=== PATIENT | female | born 2005 | race Hispanic/Latino ===

== ENCOUNTER 2024-09-22 16:16 | Emergency (ER) | payer SELFPAY ==
[2024-09-22] MEDS ORDERED: NA CHLORIDE 0.9% 1,000 ML ONE (16:56)
[2024-09-22] MEDS ORDERED: ONDANSETRON 4 MG/2 ML VIAL ONE (16:56)
[2024-09-22 17:02] LABS: Specific Gravity > 1.030 (1.005-1.030); Urine Bilirubin NEGATIVE (Negative); Urine Blood Negative (Negative); Urine Clarity Clear (Clear); Urine Color Light-Yellow (Yellow); Urine Glucose 4+ (Over) (Negative); Urine Ketones NEGATIVE (Negative); Urine Microscopic Reflex YN NO UMIC; Urine Nitrite NEGATIVE (Negative); Urine Protein NEGATIVE (Negative); Urine Urobilinogen 1+ (Normal); Urine pH 6.5 (5.0-7.0)
[2024-09-22 17:12] LABS: Absolute Lymphocytes (CBC) 2.7 K/uL (0.7-4.9); Absolute Monocytes 0.7 K/uL (0.1-1.3); Absolute Neutrophil 2.2 K/uL (1.8-8.0); Basophils % 0.3 % (0-1.3); Eosinophils % 0.6 % (0-4.4); Hematocrit 41.9 % (36.0-45.0); Hemoglobin 14.7 g/dL (12.0-15.0); Lymphocytes % 48.1 % (15.3-44.8); MCH 31.5 pg (27.0-35.0); MCHC 35.1 g/dL (32.0-36.0); MCV 89.9 fL (80-100); MPV 9.2 fL (7.6-11.3); Monocytes % 12.4 % (3.3-12.3); Neutrophils % 38.6 % (41.7-73.7); Nucleated Red Blood Cells % 0.1 % (0-0); Platelets 290 thou/uL (152-406); RBC Red Blood Cell Count 4.67 M/uL (3.86-4.86); Red Cell Distribution Width 13.1 % (12.1-15.2)
[2024-09-22 17:28] LABS: Albumin 3.5 g/dL (3.4-5.0); Albumin/Globulin Ratio 0.8 (1.1-1.8); Bilirubin Total 0.4 mg/dL (0.2-1.0); Globulin 4.2 g/dL (2.3-3.5); Protein, Total 7.7 g/dL (6.4-8.2)
--- NOTE | 2024-09-22 17:36 | EDPHYS ---
Physician Documentation [facility] Name: Mary Carrera Age: 18 yrs Sex: Female : 2005 Arrival Date: 09/22/2024 Time: 16:16 Bed 12 Private MD: ED Physician Robin Arshad HPI: 09/22 16:37 This 18 yrs old Female presents to ER via Unassigned with complaints of Nausea/Vomiting.kb 16:37 Pt is a 18 year old female who presents for vomiting and diarrhea that started on kb Friday. States she started feeling lightheaded later in the day. States the nausea and vomiting has continued, but she hasn't had a BM since yesterday morning. Denies fever. States she has been able to keep fluids down, but hasn't had an appetite to eat. . 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 - Infectious Disease History:: Denies. - Social history:: Smoking status: . ROS: 16:36 Constitutional: As per HPI kb Exam: 16:37 Constitutional: This is a well developed, well nourished patient who is awake, alert, kb and in no acute distress. Head/Face: Normocephalic, atraumatic. ENT: Moist Mucous membranes Cardiovascular: Regular rate Respiratory: Respirations even and unlabored. No increased work of breathing. Talking in full sentences Abdomen/GI: Soft, non-tender. No distention Skin: Warm, dry with normal turgor. Normal color. MS/ Extremity: Pulses equal, no cyanosis. Neurovascular intact. Full, normal range of motion. Neuro: Awake and alert, GCS 15, oriented to person, place, time, and situation. Vital Signs: 16:39 BP 138 / 90; Pulse 84; Resp 16; Temp 98.4; Pulse Ox 100% on R/A; iw 17:45 BP 135 / 78; Pulse 85; Resp 20; Temp 97.9; Pulse Ox 100% ; kj2 MDM: 16:21 Medical Screening Exam initiated kb 17:34 Differential diagnosis: viral gastroenteritis, Abnormal electrolytes, dehydration. Data kb reviewed: vital signs, nurses notes. Historians other than the Patient: Parent: mother. Counseling: I had a detailed discussion with the patient and/or guardian regarding the historical points, exam findings, and any diagnostic results supporting the discharge/admit diagnosis, lab results, the need for outpatient follow up, a family practitioner, to return to the emergency department if symptoms worsen or persist or if there are any questions or concerns that arise at home. ED course: Discussed all lab results including did glucose and follow-up with PCP. 17:36 Test considered but Not performed: CT: CT scan considered but patient has no abdominal kb pain or tenderness, afebrile normal white blood cell count. 09/22 16:39 Order name: CBC with Diff; Complete Time: 17:18 kb 09/22 16:39 Order name: CMP; Complete Time: 17:29 kb 09/22 16:39 Order name: Lipase; Complete Time: 17:29 kb 09/22 16:39 Order name: Test, Urine; Complete Time: 17:02 kb 09/22 16:39 Order name: Urinalysis w/ reflexes; Complete Time: 17:02 kb 09/22 16:39 Order name: IV Saline Lock; Complete Time: 17:13 kb 09/22 16:39 Order name: Labs collected and sent; Complete Time: 17:13 kb Administered Medications: 17:14 Drug: Ondansetron IVP 4 mg IVP once; over 2 minutes Route: IVP; Site: right antecubital;kj2 17:48 Follow up: Response: No adverse reaction kj2 17:14 Drug: NS 0.9% IV 1000 ml IV at 1 bolus Per protocol; to be given as a bolus over 60 kj2 minutes Route: IV; Rate: 1 bolus; Site: right antecubital; 17:48 Follow up: IV Status: Completed infusion; IV Intake: 1000ml kj2 17:59 Follow up: IV Status: Completed infusion; IV Intake: 1000ml kj2 17:59 Drug: Potassium Chloride PO 40 mEq PO once Route: PO; kj2 17:59 Follow up: Response: Medication administered at discharge. kj2 Disposition Summary: 09/22/24 17:35 Discharge Ordered Notes: Location: Home kb Condition: Stable kb Diagnosis - Nausea with vomiting, unspecified kb Followup: kb - With: Emergency Department - When: As needed - Reason: Worsening of condition Followup: kb - With: Private Physician - When: 2 - 3 days - Reason: Recheck today's complaints, Continuance of care, Re-evaluation by your physician Discharge Instructions: - Discharge Summary Sheet kb - Viral Gastroenteritis, Adult, [id number] kb - Nausea and Vomiting, Adult, [id number] kb Forms: - Work release form kb - Medication Reconciliation Form kb - Antibiotic Education kb - Prescription Opioid Use kb - Patient Portal Instructions kb - Leadership Thank You Letter kb Prescriptions: - ondansetron 4 mg Oral Tablet,disintegrating - take 1 tablet ORAL route every 6 hours As needed as needed for nausea and kb vomiting; 12 tablet; Refills: 0, Product Selection Permitted Signatures: Dispatcher [employer] EDMS Krystina Villagomez, PRASHANTH-C PRASHANTH-Lisa Burns, RN RN iw Ana Biggs RN RN kj2
--- NOTE | 2024-09-22 17:36 | ER ---
Nurse's Notes [facility] Name: Mary Carrera Age: 18 yrs Sex: Female : 2005 Arrival Date: 09/22/2024 Time: 16:16 Bed 12 Private MD: Diagnosis: Nausea with vomiting, unspecified Presentation: 09/22 16:38 Chief complaint: Patient states: vomiting, diarrhea , nausea, light headed since iw Friday. Coronavirus screen: At this time, the client does not indicate any symptoms associated with coronavirus-19. Ebola Screen: No symptoms or risks identified at this time. Initial Sepsis Screen: Does the patient meet any 2 criteria? No. Patient's initial sepsis screen is negative. Does the patient have a suspected source of infection? No. Patient's initial sepsis screen is negative. Risk Assessment: Do you want to hurt yourself or someone else? Patient reports no desire to harm self or others. 16:38 Method Of Arrival: Ambulatory iw 16:38 Acuity: JESSICA 3 iw 16:39 Onset of symptoms was September 19, 2024. iw Triage Assessment: 16:50 GI: Reports nausea. kj2 17:46 General: Behavior is calm, cooperative. 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 - Infectious Disease History:: Denies. - Social history:: Smoking status: . Screenin:50 [facility] ED Fall Risk Assessment (Adult) History of falling in the last 3 months, kj2 including since admission No falls in past 3 months (0 pts) Confusion or Disorientation No (0 pts) Intoxicated or Sedated No (0 pts) Impaired Gait No (0 pts) Mobility Assist Device Used No (0 pt) Altered Elimination No (0 pt) Score/Fall Risk Level 0 - 2 = Low Risk Maintained a safe environment, Hourly rounding (assess needs \T\ fall precautionary measures) done. Abuse screen: Denies threats or abuse. Denies injuries from another. Nutritional screening: No deficits noted. Tuberculosis screening: No symptoms or risk factors identified. Assessment: 16:50 General: Appears in no apparent distress. Pain: Complains of pain in abdomen Pain kj2 currently is 3 out of 10 on a pain scale. Neuro: Level of Consciousness is awake, alert, obeys commands, Oriented to person, place, time, situation. Cardiovascular: Patient's skin is warm and dry. Respiratory: Airway is patent Respiratory effort is even, unlabored. GI: Abdomen is non-distended. : No signs and/or symptoms were reported regarding the genitourinary system. 17:45 Reassessment: Patient appears in no apparent distress at this time. Patient and/or kj2 family updated on plan of care and expected duration. Pain level reassessed. Patient is alert, oriented x 3, equal unlabored respirations, skin warm/dry/pink. Vital Signs: 16:39 BP 138 / 90; Pulse 84; Resp 16; Temp 98.4; Pulse Ox 100% on R/A; iw 17:45 BP 135 / 78; Pulse 85; Resp 20; Temp 97.9; Pulse Ox 100% ; kj2 ED Course: 16:21 Patient arrived in ED. gl 16:21 Krystina Villagomez [facility]C [facility] kb 16:21 Robin Arshad MD is Attending Physician. kb 16:38 Triage completed. iw 16:38 Arm band placed on. iw 16:50 Patient has correct armband on for positive identification. Bed in low position. Call kj2 light in reach. Adult w/ patient. Provided Education on: call light. 16:53 Ana Biggs, RN is Primary Nurse. kj2 16:56 Test, Urine Sent. iw 16:56 Urinalysis w/ reflexes Sent. iw 17:46 No provider procedures requiring assistance completed. kj2 17:47 IV discontinued, intact, bleeding controlled, No redness/swelling at site. Pressure kj2 dressing applied. Administered Medications: 17:14 Drug: Ondansetron IVP 4 mg IVP once; over 2 minutes Route: IVP; Site: right antecubital;kj2 17:48 Follow up: Response: No adverse reaction kj2 17:14 Drug: NS 0.9% IV 1000 ml IV at 1 bolus Per protocol; to be given as a bolus over 60 kj2 minutes Route: IV; Rate: 1 bolus; Site: right antecubital; 17:48 Follow up: IV Status: Completed infusion; IV Intake: 1000ml kj2 17:59 Follow up: IV Status: Completed infusion; IV Intake: 1000ml kj2 17:59 Drug: Potassium Chloride PO 40 mEq PO once Route: PO; kj2 17:59 Follow up: Response: Medication administered at discharge. kj2 Medication: 17:18 VIS not applicable for this client. kj2 Intake: 17:48 IV: 1000ml; Total: 1000ml. kj2 17:59 IV: 1000ml; Total: 2000ml. kj2 Outcome: 17:35 Discharge ordered by . ang 17:47 Discharged to home ambulatory, kj2 17:47 Condition: stable 17:47 Discharge instructions given to patient, Instructed on discharge instructions, follow up and referral plans. Demonstrated understanding of instructions, follow-up care, 18:00 Patient left the ED. kj2 Signatures: Krystina Villagomez, ADVERTISING ASSISTANT MANAGER-C ADVERTISING ASSISTANT MANAGER-Ckb Lisa Fox RN RN iw Ana Biggs RN RN kj2 Mary Oakley, Reg Reg gl
[2024-09-22] MEDS ORDERED: POTASSIUM CL SA 10 MEQ TAB PO ONE (17:54)
[2024-09-22 19:03] VITALS: O2SAT 100
[2024-09-22 19:04] VITALS: BP 135/78; TEMP 97.9
== END 2024-09-22 18:00 | disposition home or self-care (01) ==
LOC: ER 16:16
DX: R11.2 Nausea with vomiting, unspecified (principal)
CPT/HCPCS: 36415; 80053; 81003; 81025; 83690; 85025; J2405; J7030